=== PATIENT | female | born 1970 | race Caucasian/White ===

== ENCOUNTER 2021-03-07 15:08 | Emergency (ER) | payer OTHER ==
[2021-03-07] MEDS ORDERED: Ketorolac 30 MG/ML SDV IM ONE (16:09)
--- NOTE | 2021-03-07 16:41 | EDM.PDOC ---
ED HPI GENERAL MEDICAL PROBLEM - General Chief Complaint: Lower Extremity Injury/Pain Stated Complaint: TWISTED KNEE AT WORK Time Seen by Provider: 03/07/21 15:10 Source of Information: Reports: Patient History Limitations: Reports: No Limitations - History of Present Illness INITIAL COMMENTS - FREE TEXT/NARRATIVE: Patient presented to the ED because of rt knee injury. She was at work pulling a 4 wheel cart when she twisted her right leg and knee sidewards. She c/o 6/10 pain that is worse with ambulation. Right Knee Pain Score (Numeric/FACES): 6 - Related Data Allergies Allergy/AdvReac Type Severity Reaction Status Date / Time Penicillins Allergy Hives Verified 03/07/21 16:05 Home Meds: Home Meds Cyclobenzaprine [Flexeril] 10 mg PO TID PRN #30 tab 03/07/21 [Rx] Ibuprofen 800 mg PO TID PRN #30 tablet 03/07/21 [Rx] Review of Systems - Review of Systems Review Of Systems: See Below Constitutional: Reports: No Symptoms Eyes: Reports: No Symptoms Ears: Reports: No Symptoms Nose: Reports: No Symptoms Mouth/Throat: Reports: No Symptoms Respiratory: Reports: No Symptoms Cardiovascular: Reports: No Symptoms Genitourinary: Reports: No Symptoms Musculoskeletal: Reports: Joint Pain ED EXAM, GENERAL - Physical Exam Exam: See Below Exam Limited By: No Limitations General Appearance: Alert, No Apparent Distress Ears: Normal External Exam, Normal Canal Nose: Normal Inspection, Normal Mucosa, No Blood Throat/Mouth: Normal Inspection, Normal Lips, Normal Teeth Head: Atraumatic, Normocephalic Neck: Normal Inspection, Supple, Non-Tender Respiratory/Chest: No Respiratory Distress, Lungs Clear, Normal Breath Sounds, No Accessory Muscle Use Cardiovascular: Normal Peripheral Pulses, Regular Rate, Rhythm, No Edema, No Gallop, No JVD, No Murmur, No Rub GI/Abdominal: Normal Bowel Sounds, Soft, Non-Tender, No Organomegaly Back Exam: Normal Inspection, Full Range of Motion Extremities: Limited Range of Motion (tendeness lateral and medial aspect of right knee), Other Course - Vital Signs Text/Narrative:: Xray right knee-negative Toradol 60 mg IM x1 Crutches provided in ED Last Recorded V/S: Last Vital Signs Temp 36.6 C 03/07/21 17:15 Pulse 75 03/07/21 17:15 Resp 18 03/07/21 17:15 BP 170/90 H 03/07/21 17:15 Pulse Ox 96 03/07/21 17:15 - Orders/Labs/Meds Meds: Medications Discontinued Medications Generic Name Dose Route Start Last Admin Trade Name Freq PRN Reason Stop Dose Admin Cyclobenzaprine HCl 10 mg 03/07/21 16:49 03/07/21 17:03 Cyclobenzaprine 10 Mg Tab PO 03/07/21 16:50 10 mg ONETIME ONE Administration Ketorolac Tromethamine 60 mg 03/07/21 16:09 03/07/21 16:47 Ketorolac 30 Mg/Ml Sdv IM 03/07/21 16:10 60 mg ONETIME ONE Administration Departure - Departure Time of Disposition: 16:40 Disposition: Home, Self-Care 01 Condition: Good Clinical Impression: Knee sprain - Discharge Information Prescriptions: Cyclobenzaprine [Flexeril] 10 mg PO TID PRN #30 tab PRN Reason: Spasms Ibuprofen 800 mg PO TID PRN #30 tablet PRN Reason: Pain Instructions: Knee Sprain, Adult, [id number] Referrals: PCP,None [Primary Care Provider] - Forms: ED Department Discharge Additional Instructions: Please read discharge instructions on knee sprain Apply ice, elevate Ibuprofen 800 mg with tylenol 1000 mg and flexeril every 8 hours as needed for pain/spams. Take them all at the same time for better pain relief Follow up as after a week with your ortho if no improvement Sepsis Event Note (ED) - Evaluation Sepsis Screening Result: No Definite Risk
[2021-03-07] MEDS ORDERED: Cyclobenzaprine 10 MG Tab PO ONE (16:49)
--- NOTE | 2021-03-08 11:16 | CR ---
INDICATION: Injury - twisted right knee at work today. History of previous torn meniscus. Torn ACL. RIGHT KNEE: Three views of the right knee were obtained 03/07/21 - no comparisons. There appears to be a calcific density overlying the knee joint space on the lateral view not definitely visualized on the AP view which could represent a joint mouse in the intercondylar area of the knee joint. Moderate hypertrophic changes are noted off the lateral femur and tibia with question of mild loss of lateral femorotibial joint space. An appearance suggesting a previous ACL repair is noted. Hypertrophic change is noted at the patellofemoral joint of mild to moderate degree with patellofemoral joint space well maintained. Very slight bulge at the suprapatellar bursa raises question of a minimal knee joint effusion. A definite acute fracture or dislocation was not identified. Bone density appeared to be normal. IMPRESSION: 1. Osteoarthritis with probable mild loss of lateral femorotibial joint space. 2. Possible small knee joint effusion. 3. Question joint mouse. MTDD
== END 2021-03-07 17:25 | disposition home or self-care (01) ==
LOC: FB.ED 15:08
DX: S83.91XA Sprain of unspecified site of right knee, initial encounter (principal); Z88.0 Allergy status to penicillin; X50.1XXA Overexertion from prolonged static or awkward postures, initial encounter; Y99.0 Civilian activity done for income or pay
CPT/HCPCS: 73562-RT; 96372; 99000; 99283; 99283-25; A9270-GY; J1885

== ENCOUNTER 2022-10-17 06:19 | Day surgery (SDC) | payer OTHER ==
[~2022-10-17 06:19] MED LIST: Lactated Ringers 1,000 ML IV SCH; Sodium Chloride 0.9% 10 ML Syringe FLUSH PRN
[2022-10-17] MEDS ORDERED: Propofol 200 MG/20 ML SDV IV ONE (06:20)
[2022-10-17] MEDS ORDERED: Ketamine 500 mg/10 ML MDV IV ONE (06:20)
[2022-10-17] MEDS ORDERED: Midazolam 1 MG/ML 2 ML SDV IV ONE (06:20)
[2022-10-17] MEDS ORDERED: Lidocaine 2% 5 ML SDV INJECT ONE (06:20)
== END 2022-10-17 08:44 | disposition home or self-care (01) ==
LOC: FB.SDS 06:19
PROVIDERS: ATTEND Surgery
DX: R19.7 Diarrhea, unspecified (principal); D12.6 Benign neoplasm of colon, unspecified; F17.210 Nicotine dependence, cigarettes, uncomplicated; Z80.0 Family history of malignant neoplasm of digestive organs; Z79.899 Other long term (current) drug therapy; Z88.0 Allergy status to penicillin; Z88.6 Allergy status to analgesic agent; Z98.890 Other specified postprocedural states
CPT/HCPCS: 00811; 45385; 82947; 88305; J2250; J2704; J3490; J7120

== ENCOUNTER 2023-10-19 16:25 | Emergency (ER) | payer OTHER ==
[2023-10-19] MEDS: Ketorolac 30 MG/ML SDV IM STA (17:20)
[2023-10-19 17:24] LABS: BASOPHILS ABSOLUTE AUTO 0.1 x10-3/uL (0.0-0.1); BASOPHILS PERCENT AUTO 0.9 % (0.2-1.5); EOSINOPHILS ABSOLUTE AUTO 0.3 x10-3/uL (0.0-0.8); EOSINOPHILS PERCENT AUTO 2.1 % (0.6-8.1); HEMATOCRIT 44.6 % (34.2-48.2); HEMOGLOBIN 15.1 g/dL (11.4-15.5); LYMPHOCYTES ABSOLUTE AUTO 4.1 x10-3/uL (1.0-4.4); LYMPHOCYTES PERCENT AUTO 30.3 % (18.4-52.1); MEAN CORPUSCULAR HEMOGLOBIN 28.9 pg (23.9-33.9); MEAN CORPUSCULAR HGB CONC 33.8 g/dL (31.9-34.8); MEAN CORPUSCULAR VOLUME 85.5 fL (76.7-100.5); MEAN PLATELET VOLUME 7.9 fL (7.1-12.4); MONOCYTES ABSOLUTE AUTO 0.7 x10-3/uL (0.3-1.0); MONOCYTES PERCENT AUTO 5.5 % (4.4-15.7); NEUTROPHILS ABSOLUTE AUTO 8.3 x10-3/uL (1.5-6.3); NEUTROPHILS PERCENT AUTO 61.2 % (30.8-76.2); PLATELET COUNT,PLT 334 x10(3)uL (151-488); RED BLOOD CELL COUNT 5.22 x10(6)uL (3.60-5.20); RED CELL DISTRIBUTION WIDTH 14.1 % (12.3-16.5); WHITE BLOOD CELL COUNT,WBC 13.6 x10-3/uL (3.0-10.3)
[2023-10-19 17:30] LABS: BLOOD UREA NITROGEN,BUN 9 mg/dL (7-18); CALCIUM 9.6 mg/dL (8.6-10.2); CARBON DIOXIDE,CO2 30 mmol/L (21-32); CHLORIDE,CL 99 mmol/L (100-110); EST CRCL DRUG DOSING (CG) 56.26 mL/min; ESTIMATED GFR 68 mL/min (>60); GLUCOSE RANDOM 91 mg/dL (80-116); POTASSIUM,K 3.1 mmol/L (3.5-5.3); SODIUM,NA 139 mmol/L (135-145)
[2023-10-19 17:33] LABS: APPEARANCE,URINE CLEAR (CLEAR); BACTERIA,URINE FEW (NS); BILIRUBIN,URINE NEGATIVE (NEGATIVE); COLOR,URINE YELLOW (YELLOW); GLUCOSE,URINE NORMAL (NORMAL); KETONES,URINE NEGATIVE (NEGATIVE); LEUKOCYTE ESTERASE,URINE NEGATIVE (NEGATIVE); NITRITE,URINE NEGATIVE (NEGATIVE); OCCULT BLOOD,URINE MODERATE (NEGATIVE); PROTEIN,URINE NEGATIVE (NEGATIVE); SQUAMOUS EPITHELIAL CELLS,UR FEW (NS,R,O); UROBILINOGEN,URINE NORMAL (NEGATIVE); WBC,URINE 0-5 (0-5)
[2023-10-19 17:33] LABS: ALANINE AMINOTRANSFERASE,ALT 38 U/L (12-36); ALBUMIN 3.9 g/dL (3.5-5.2); ALKALINE PHOSPHATASE 117 IU/L (56-112); AMYLASE 44 U/L (25-115); ASPARTATE AMNIOTRANSFERASE,AST 21 IU/L (5-25); BILIRUBIN TOTAL 0.3 mg/dL (0.1-1.3); PROTEIN TOTAL,TP 7.9 g/dL (6.0-8.0)
[2023-10-19] MEDS: Potassium Chloride 20 MEQ Tab.ER PO ONE (18:15)
== END 2023-10-19 18:25 | disposition home or self-care (01) ==
LOC: FB.ED 16:25
DX: S39.012A Strain of muscle, fascia and tendon of lower back, initial encounter (principal); E87.6 Hypokalemia; I10 Essential (primary) hypertension; F17.210 Nicotine dependence, cigarettes, uncomplicated; E66.9 Obesity, unspecified; Z68.41 Body mass index [BMI] 40.0-44.9, adult; Z90.49 Acquired absence of other specified parts of digestive tract; Z88.0 Allergy status to penicillin; Z79.899 Other long term (current) drug therapy
CPT/HCPCS: 36415; 74176; 80053; 81001; 82150; 83690; 85025; 96372; 99284; A9270-GY; J1885